=== PATIENT | female | born 1950 | race Caucasian/White ===

== ENCOUNTER 2017-09-19 05:51 | Day surgery (SDC) | payer OTHER ==
[2017-09-06 17:51] VITALS: BMI 25.7
[2017-09-19] MEDS ORDERED: MIDAZOLAM HCL 2 MG/2 ML SINGLE DOSE VIAL ONE ×4 (07:11→08:32)
[2017-09-19] MEDS ORDERED: SUCCINYLCHOLINE CHLORIDE 200 MG/10 ML VIAL ONE (07:11)
[2017-09-19] MEDS ORDERED: PROPOFOL 20 ML ONE ×2 (07:11→09:58)
[2017-09-19] MEDS ORDERED: LIDOCAINE HCL/PF 2% SDV 5ML VIAL ONE (07:23)
[2017-09-19] MEDS ORDERED: BUPIVACAINE HCL/PF 2.5 MG/ML - 30 ML VIAL IJ ONE (07:41)
[2017-09-19] MEDS ORDERED: EPINEPHrine 1:1,000 1 MG/1 ML - 30ML VIAL (INJECTION) ONE (07:42)
[2017-09-19] MEDS ORDERED: ceFAZolin SODIUM 1 GM VIAL ONE (08:12)
[2017-09-19] MEDS ORDERED: ePHEDrine SULFATE 50 MG/1 ML AMPULE ONE (08:31)
[2017-09-19] MEDS ORDERED: oxyCODONE HCL 5 MG TABLET PO PRN (09:58)
[2017-09-19] MEDS ORDERED: ONDANSETRON 4 MG/2 ML VIAL IVPUSH PRN (09:58)
[2017-09-19] MEDS ORDERED: LACTATED RINGERS SOLUTION 1,000 ML IV SCH (10:00)
--- NOTE | 2017-09-19 10:46 | OP ---
Operative Note - Note: Operative Date: 09/19/17 Pre-Operative Diagnosis: left hip gluteus medius tear / bursitis Operation: left gluteus medius repair and hip bursectomy Implants: arenas and nephew q-fix x1, multifix x1, helicoil x1 Post-Operative Diagnosis: Same as Pre-op Surgeon: Yohan Clay Ammonia Distiller: Ba Paul Anesthesia: Spinal Operative Report Dictated: Yes
--- NOTE | 2017-09-19 12:00 | OP ---
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 POSTOPERATIVE DIAGNOSIS: Gluteus medius tear with hip bursitis. PROCEDURE: Left hip arthroscopy with gluteus medius repair, hip bursectomy. SURGEON: Yohan Young MD DIESEL PILE DRIVER OPERATOR: LINDSEY Foss, whose skilled full assistance was necessary for the safe and timely performance of this procedure. Mr. Paul was able to help drive the camera, help in suture management, passage of sutures as well as insertion of fixation hardware. ANESTHESIA: Spinal. POSTOPERATIVE CONDITION: Stable. COMPLICATIONS: None. IMPLANTS: [employer] Nephew Healicoil x1, Q-Fix x1, Multifix x1. POSTOPERATIVE CONDITION: Stable. BLOOD LOSS: Minimal. INDICATIONS: This is a pleasant 67-year-old female who has been suffering from years of lateral hip pain. Treatment including therapy and injections as well as medications has failed to provide improvement. Treatment options including continued nonoperative versus operative management were discussed. Operative risks were reviewed in detail including bleeding, infection, neurovascular injury, need for further surgery, postoperative pain and stiffness, retear of the gluteus or failure to heal. We discussed medical risks such as heart attack, stroke, DVT, PE, and . I reviewed the postoperative rehabilitation protocol and need to protect the repair. We addressed the use of DVT and antibiotic prophylaxis. I addressed all of the patient's questions and concerns. I reviewed this with her as well, and she voiced understanding and elected to proceed. DESCRIPTION OF PROCEDURE: The patient was brought to the operating room and placed supine on the operating room table. The leg price for hip arthroscopy was placed on the table and the patient placed into it. Care was taken to pad all of the bony prominences. The left lower extremity was then prepped and draped in the usual sterile fashion. A preoperative dose of antibiotics was given, and the usual time-out procedure was performed. At this point, a long spinal needle was inserted at the level of the vastus ridge on the greater trochanter. Inserted down to the level of the bone. A manual wire was then inserted down and a cannula was put in 4.5 mm in diameter. The camera was now inserted into the bursal space. Second portal was made more proximal at the tip of the greater trochanter, and a cannula was inserted here as well. Shaver was now inserted into the bursal plate, and using a shaver as well as electrocautery, a wide resection was performed. This exposed the vastus lateralis as well as the gluteus medius over the greater trochanter. The gluteus medius was seen to have fraying tissue. The tendon itself was probed and found to be quite mobile consistent with undersurface tear. A banana blade was now used to make a longitudinal split in the tendon, and the shaver was passed inside. After this, it was clearly visualized that minimal gluteus medius was still attached. Approximately 90% of the tendon had been detached. The surface was debrided of any soft tissue using electrocautery. A bur was then used to debride the superficial layer of cortex. A Healicoil anchor was now inserted at the proximal anterior margin of the footprint. Utilizing a suture passer, sutures were passed in a horizontal mattress fashion and then tied down. More posteriorly, a Q-Fix anchor was inserted this using a more posterior portal and then these sutures were passed in horizontal mattress fashion as well. The suture tape was cut, and the remaining sutures were maintained at this point. The sutures were now all retrieved out with 1 single cannula. They were passed through a Multifix anchor. The Multifix was then malleted into place at the distalmost extent of the gluteus medius footprint forming a double row repair and securing down an extra flap of tissue along the footprint. At this point, the entire construct was examined and found to be stable. Excess fluid was removed. Portals were sutured using horizontal mattress 3-0 nylon. Sterile dressings were placed. The patient was transferred to the recovery room in stable condition. YOHAN YOUNG M.D. [id number]
[2017-09-19] MEDS ORDERED: oxyCODONE HCL 5 MG TABLET ONE (12:44)
[2017-09-19 13:45] VITALS: PULSE 60; TEMP 97.4
[2017-09-19 13:49] VITALS: BP 114/90
== END 2017-09-19 13:55 | disposition home or self-care (01) ==
LOC: FASU 05:51
PROVIDERS: ATTEND Orthopaedic Surgery Sports Medicine
PROC: 0MBM4ZZ Excision of Left Hip Bursa and Ligament, Percutaneous Endoscopic Approach (ICD-10-PCS; principal; 2017-09-19 08:25)
DX: M66.88 Spontaneous rupture of other tendons, other sites (principal); M71.552 Other bursitis, not elsewhere classified, left hip
CPT/HCPCS: 94760